=== PATIENT | female | born 1990 | race Caucasian/White ===

== ENCOUNTER 2021-01-10 09:19 | Observation (INO) | payer MEDICAID ==
[~2021-01-10] VITALS: Ht 172.7 cm; Wt 108.9 kg
== END 2021-01-10 14:10 | disposition home or self-care (01) ==
LOC: 8 EST LDRP 09:19
PROVIDERS: ADMIT Obstetrics & Gynecology; ATTEND Obstetrics & Gynecology
DX: O62.9 Abnormality of forces of labor, unspecified (principal); Z3A.39 39 weeks gestation of pregnancy
CPT/HCPCS: 59025; 76805; 76818; G0378; 99281

== ENCOUNTER 2021-01-12 09:11 | Inpatient (IN) | payer MEDICAID ==
[~2021-01-12] VITALS: Ht 53.3 cm; Wt 3.8 kg
[2021-01-12] MEDS ORDERED: PREN1CAP29 PO (09:28)
[2021-01-12] MEDS ORDERED: DEXT 5%/LACTATED RINGERS 1,000 ML IV PRN (10:15)
[2021-01-12] MEDS ORDERED: NALOXONE HCL 0.4 MG/ML 1ML VIAL IM PRN (10:15)
[2021-01-12] MEDS ORDERED: MISOPROSTOL 200MCG TABLET VG SCH (10:15)
[2021-01-12] MEDS ORDERED: METHYLERGONOVINE MALEATE 0.2 MG/ML IM PRN (10:15)
[2021-01-12] MEDS ORDERED: CARBOPROST TROMETHAMINE 250 MCG/ML AMPUL IM PRN (10:15)
[2021-01-12] MEDS ORDERED: BUTORPHANOL TARTRATE 2 MG/ML VIAL IV PRN (10:15)
[2021-01-12] MEDS ORDERED: LIDOCAINE HCL 1% 20ML VIAL (Pyxis) INJ INFIL SCH (10:15)
[2021-01-12 10:38] LABS: BASOPHILS % 0.3 % (0.0-2.0); EOSINOPHILS % 0.8 % (0.0-5.0); HEMATOCRIT. 34.6 % (36.0-48.0); HEMOGLOBIN. 12.1 g/dL (12.0-16.0); LYMPHOCYTES % 23.7 % (20.0-50.0); MEAN CORPUSCULAR HEMOGLOBIN 32.6 pg (28.0-32.0); MEAN CORPUSCULAR VOLUME 93.3 fL (81.0-99.0); MEAN PLATELET VOLUME 9.2 fl (7.4-10.4); MONOCYTES % 5.3 % (2.0-8.0); NEUTROPHILS % 69.9 % (40.0-76.0); PLATELET 226 x1000/uL (130-400); RED BLOOD CELL COUNT 3.71 mill/uL (4.2-5.4); RED CELL DISTRIBUTION WIDTH 13.7 % (11.6-14.6)
[2021-01-12 10:46] LABS: CLARITY URINE CLOUDY (CLEAR); COLOR URINE YELLOW (YELLOW); KETONES URINE NEGATIVE (NEGATIVE); LEUKOCYTE ESTERASE URINE NEGATIVE (NEGATIVE); NITRITE URINE NEGATIVE (NEGATIVE); OCCULT BLOOD URINE NEGATIVE (NEGATIVE); PROTEIN URINE NEGATIVE (NEGATIVE)
[2021-01-12 10:50] LABS: PARTIAL THROMBOPLASTIN TIME 31.4 sec (23.4-31.0); PROTHROMBIN TIME 10.9 sec (9.6-11.0)
[2021-01-12] MEDS ORDERED: AMPICILLIN 2GM in NS 100ML 100 ML IV NR (11:00)
[2021-01-12] MEDS: LACTATED RINGERS 1,000 ML IV PRN ×5 (11:16→18:33)
[2021-01-12] MEDS: DEXT 5%/LR + PITOCIN 20UNITS/L 1,000 ML IV PRN ×2 (11:16→23:50)
[2021-01-12 11:31] LABS: HEPATITIS B SURFACE ANTIGEN NEGATIVE
[2021-01-12 12:07] LABS: *AMPHETAMINES SCREEN URINE NEGATIVE (NEGATIVE); *BARBITURATES SCREEN URINE NEGATIVE (NEGATIVE); *BENZODIAZEPINES SCREEN URINE NEGATIVE (NEGATIVE)
[2021-01-12 12:08] LABS: *COCAINE SCREEN URINE NEGATIVE (NEGATIVE); CANNABINOID URINE SCREEN NEGATIVE (NEGATIVE); METHADONE URINE SCREEN NEGATIVE (NEGATIVE); PHENCYCLIDINE URINE SCREEN NEGATIVE (NEGATIVE)
[2021-01-12 12:10] LABS: OPIATES URINE SCREEN NEGATIVE (NEGATIVE)
[2021-01-12] MEDS ORDERED: AMPICILLIN 1,000 MG in SODIUM CHLORIDE 0.9% 50 ML IV SCH (17:00)
[2021-01-12] MEDS ORDERED: ROPIVACAINE HCL/PF EPIDURAL 200 ML EPI SCH (18:00)
[2021-01-12] MEDS ORDERED: ONDANSETRON HCL 4MG/2ML INJ IV PRN (18:00)
[2021-01-12] MEDS ORDERED: DIPHENHYDRAMINE 50MG/ML VIAL IV PRN (18:00)
[2021-01-12] MEDS ORDERED: DEXT 5%/LR + PITOCIN 20UNITS/L 1,000 ML IV ONE (23:41)
[2021-01-12] MEDS ORDERED: IBUPROFEN 400MG TABLET PO PRN (23:45)
[2021-01-12] MEDS ORDERED: BENZOCAINE/LANOLIN/ALOE VERA SPRAY TOP PRN (23:45)
[2021-01-12] MEDS ORDERED: LANOLIN OINT 7GM TUBE TOP PRN (23:45)
[2021-01-12] MEDS ORDERED: ACETAMINOPHEN WITH CODEINE 300/30MG TABLET PO PRN (23:45)
[2021-01-12] MEDS ORDERED: DIPHENHYDRAMINE 25MG CAPSULE PO PRN (23:45)
[2021-01-12] MEDS ORDERED: DEXT 5%/LR + PITOCIN 20UNITS/L 1,000 ML IV SCH (23:45)
[2021-01-12] MEDS ORDERED: HEMORRHOIDAL SUPP PR PRN (23:45)
[2021-01-12] MEDS ORDERED: RHO(D) IMMUNE GLOBULIN 300 MCG/SYR IM PRN (23:45)
[2021-01-12] MEDS ORDERED: BISACODYL 10MG SUPP PR PRN (23:45)
[2021-01-12] MEDS ORDERED: GLYCERIN/WITCH HAZEL LEAF MEDICATED PAD TOP PRN (23:45)
[2021-01-13 01:30] VITALS: BP 98/74
[2021-01-13 02:00] VITALS: BP 115/70
[2021-01-13 05:00] VITALS: BP 102/67
[2021-01-13 07:43] LABS: BASOPHILS % 0.2 % (0.0-2.0); EOSINOPHILS % 0.6 % (0.0-5.0); HEMATOCRIT. 36.3 % (36.0-48.0); HEMOGLOBIN. 12.4 g/dL (12.0-16.0); LYMPHOCYTES % 16.9 % (20.0-50.0); MEAN CORPUSCULAR HEMOGLOBIN 32.2 pg (28.0-32.0); MEAN CORPUSCULAR VOLUME 94.6 fL (81.0-99.0); MEAN PLATELET VOLUME 9.1 fl (7.4-10.4); MONOCYTES % 7.5 % (2.0-8.0); NEUTROPHILS % 74.8 % (40.0-76.0); PLATELET 218 x1000/uL (130-400); RED BLOOD CELL COUNT 3.84 mill/uL (4.2-5.4); RED CELL DISTRIBUTION WIDTH 13.4 % (11.6-14.6)
[2021-01-13 08:00] VITALS: BP 116/71
[2021-01-13] MEDS: PRENATAL VIT/FE FUMARATE/FA TABLET PO SCH (08:17)
[2021-01-13] MEDS: IBUPROFEN 800MG TABLET PO PRN ×2 (08:17→20:26)
[2021-01-13] MEDS: FERROUS SULFATE 325MG TABLET PO SCH ×2 (08:17→20:27)
[2021-01-13] MEDS: SIMETHICONE 80MG TABLET CHEW PO SCH ×2 (08:18→20:27)
[2021-01-13] MEDS ORDERED: METHYLERGONOVINE MALEATE 0.2MG TABLET PO SCH (09:00)
[2021-01-13 17:32] VITALS: BP 108/68
[2021-01-13 19:15] VITALS: BP 117/76
[2021-01-13] MEDS: MAGNESIUM/ALUMINUM HYDROXIDE/SIMETHICONE 30ML UDC PO SCH (20:27)
[2021-01-13] MEDS ORDERED: DOCUSATE SODIUM 100MG CAPSULE PO SCH (21:00)
[2021-01-13] MEDS ORDERED: ACETAMINOPHEN WITH CODEINE 300/30MG TABLET PO PRN (23:45)
[2021-01-14 04:00] VITALS: BP 124/81
[2021-01-14] MEDS: MAGNESIUM/ALUMINUM HYDROXIDE/SIMETHICONE 30ML UDC PO SCH ×2 (07:30→12:27)
[2021-01-14] MEDS: FERROUS SULFATE 325MG TABLET PO SCH ×2 (07:30→12:27)
[2021-01-14] MEDS: SIMETHICONE 80MG TABLET CHEW PO SCH ×2 (08:00→12:27)
[2021-01-14] MEDS: PRENATAL VIT/FE FUMARATE/FA TABLET PO SCH (08:39)
[2021-01-14 08:46] VITALS: BP 132/85
== END 2021-01-14 14:40 | disposition home or self-care (01) | DRG 560 ==
LOC: OBSVTOIN 09:11 → 8 EST LDRP 09:11 → UNDODISOB 10:15 → 8EST 01-13 01:15
PROVIDERS: ADMIT Obstetrics & Gynecology; ATTEND Obstetrics & Gynecology
PROC: 10E0XZZ Delivery of Products of Conception, External Approach (ICD-10-PCS; principal; 2021-01-12)
PROC: 3E0R3BZ Introduction of Anesthetic Agent into Spinal Canal, Percutaneous Approach (ICD-10-PCS; 2021-01-12)
PROC: 00HU33Z Insertion of Infusion Device into Spinal Canal, Percutaneous Approach (ICD-10-PCS; 2021-01-12)
DX: O80 Encounter for full-term uncomplicated delivery (principal); Z3A.39 39 weeks gestation of pregnancy; Z37.0 Single live birth
CPT/HCPCS: 36415; 80305; 81003; 85025; 86592; 86703; 86762; 86850; 86900; 87340; G0378; J0290; J2590; J2795; A4315

== ENCOUNTER 2023-12-05 23:29 | Emergency (ER) | payer MEDICAID, OTHER ==
[~2023-12-05] VITALS: Ht 167.6 cm; Wt 73.0 kg
[2023-12-05 23:43] VITALS: BP 134/96; TEMP 98.5; O2SAT 98
[2023-12-06] MEDS ORDERED: KETOROLAC 30MG/ML VIAL IM STA (01:37)
[2023-12-06 01:48] LABS: BASOPHILS % 0.8 % (0.0-2.0); EOSINOPHILS % 1.8 % (0.0-5.0); HEMATOCRIT. 41.9 % (36.0-48.0); HEMOGLOBIN. 14.3 g/dL (12.0-16.0); MEAN CORPUSCULAR HEMOGLOBIN 32.9 pg (28.0-32.0); MEAN CORPUSCULAR HGB CONC 34.1 g/dL (31.0-37.0); MEAN CORPUSCULAR VOLUME 96.4 fL (81.0-99.0); MEAN PLATELET VOLUME 7.6 fl (7.4-10.4); NEUTROPHILS % 38.4 % (40.0-76.0); PLATELET 243 x1000/uL (130-400); RED BLOOD CELL COUNT 4.35 mill/uL (4.2-5.4); RED CELL DISTRIBUTION WIDTH 12.8 % (11.6-14.6); WHITE BLOOD COUNT 7.9 x1000/uL (4.5-11.0)
[2023-12-06 02:02] LABS: ALANINE AMINOTRANSFERASE 37 IU/L (10-49); ALBUMIN 4.5 g/dL (3.2-4.8); ASPARTATE AMINOTRANSFERASE 53 IU/L (<34); BILIRUBIN TOTAL 0.5 mg/dL (0.1-1.0); CALCIUM 9.3 mg/dL (8.7-10.4); CARBON DIOXIDE 28 mEq/L (21-32); CHLORIDE 107 mEq/L (98-107); CREATININE 0.6 mg/dL (0.6-1.0); GLUCOSE 89 mg/dL (70-105); POTASSIUM 4.7 mEq/L (3.5-5.1); PROTEIN TOTAL 8.5 g/dL (6.0-8.3); SODIUM 143 mEq/L (136-145)
[2023-12-06 02:04] LABS: UREA NITROGEN BLOOD < 5 mg/dL (9-23)
[2023-12-06 02:36] LABS: CLARITY URINE CLOUDY (CLEAR); COLOR URINE DARK YELLOW (YELLOW); GLUCOSE URINE NEGATIVE (NEGATIVE); KETONES URINE NEGATIVE (NEGATIVE); LEUKOCYTE ESTERASE URINE 1+ (NEGATIVE); NITRITE URINE POSITIVE (NEGATIVE); OCCULT BLOOD URINE NEGATIVE (NEGATIVE); PROTEIN URINE TRACE (NEGATIVE); SPECIFIC GRAVITY URINE 1.021 (1.005-1.030)
[2023-12-06 02:56] LABS: BACTERIA URINE 2+; SQUAMOUS EPITHELIAL CELL URINE 2+ /lpf (RARE/1+); WBC URINE 50-100 /hpf (0-2)
[2023-12-06] MEDS ORDERED: CEPHALEXIN 250MG CAPSULE PO ONE (03:00)
[2023-12-06] MEDS ORDERED: IBUP-2029 MT (03:04)
[2023-12-06] MEDS ORDERED: CEPH500C2 MT (03:04)
[2023-12-06] MEDS ORDERED: HYDROCODONE/ACETAMINOPHEN 5/325MG TABLET PO ONE (03:15)
[2023-12-06] MEDS ORDERED: CEFTRIAXONE SODIUM 1G VIAL IM ONE (03:15)
[2023-12-06 03:31] VITALS: PULSE 100; RESP 16
== END 2023-12-06 03:33 | disposition home or self-care (01) ==
LOC: ER 23:55
DX: K80.20 Calculus of gallbladder without cholecystitis without obstruction (principal); N39.0 Urinary tract infection, site not specified
CPT/HCPCS: 99285; 80053; 81003; 81025; 83690; 85025; 87086; 87186; 36415; 76705; 96372; J0696; J1885; Z7610 ×2

== ENCOUNTER 2023-12-19 12:51 | Emergency (ER) | payer OTHER ==
[~2023-12-19] VITALS: Ht 160 cm; Wt 70.0 kg
[~2023-12-19 12:51] MED LIST: CEPH500C2 MT; IBUP-2029 MT
[2023-12-19 12:52] VITALS: O2SAT 99
[2023-12-19 14:27] LABS: EOSINOPHILS % 2.2 % (0.0-5.0); HEMATOCRIT. 40.5 % (36.0-48.0); HEMOGLOBIN. 13.8 g/dL (12.0-16.0); LYMPHOCYTES % 29.1 % (20.0-50.0); MEAN CORPUSCULAR HEMOGLOBIN 32.9 pg (28.0-32.0); MEAN CORPUSCULAR HGB CONC 34.1 g/dL (31.0-37.0); MEAN CORPUSCULAR VOLUME 96.4 fL (81.0-99.0); MEAN PLATELET VOLUME 8.2 fl (7.4-10.4); MONOCYTES % 10.8 % (2.0-8.0); NEUTROPHILS % 56.9 % (40.0-76.0); PLATELET 229 x1000/uL (130-400); RED BLOOD CELL COUNT 4.19 mill/uL (4.2-5.4); RED CELL DISTRIBUTION WIDTH 13.6 % (11.6-14.6); WHITE BLOOD COUNT 6.8 x1000/uL (4.5-11.0)
[2023-12-19 14:44] LABS: ALANINE AMINOTRANSFERASE 95 IU/L (10-49); ALBUMIN 4.4 g/dL (3.2-4.8); ASPARTATE AMINOTRANSFERASE 91 IU/L (<34); BILIRUBIN TOTAL 0.4 mg/dL (0.1-1.0); CALCIUM 9.3 mg/dL (8.7-10.4); CARBON DIOXIDE 30 mEq/L (21-32); CHLORIDE 105 mEq/L (98-107); CREATININE 0.6 mg/dL (0.6-1.0); GLUCOSE 95 mg/dL (70-105); PROTEIN TOTAL 7.7 g/dL (6.0-8.3); SODIUM 139 mEq/L (136-145); UREA NITROGEN BLOOD 11 mg/dL (9-23)
[2023-12-19 16:22] LABS: CLARITY URINE CLEAR (CLEAR); COLOR URINE YELLOW (YELLOW); GLUCOSE URINE NEGATIVE (NEGATIVE); KETONES URINE NEGATIVE (NEGATIVE); LEUKOCYTE ESTERASE URINE 2+ (NEGATIVE); NITRITE URINE NEGATIVE (NEGATIVE); OCCULT BLOOD URINE NEGATIVE (NEGATIVE); PROTEIN URINE NEGATIVE (NEGATIVE); SPECIFIC GRAVITY URINE 1.016 (1.005-1.030); UROBILINOGEN URINE 0.2 E.U./dL (0.2-1.0)
[2023-12-19 16:44] LABS: BACTERIA URINE 1+; RBC URINE 0-2 /hpf (0-2); SQUAMOUS EPITHELIAL CELL URINE FEW /lpf (RARE/1+)
[2023-12-19 16:45] LABS: TRICHOMONAS URINE RARE; YEAST URINE NONE SEEN
[2023-12-19 16:59] LABS: HCG SCREEN NEGATIVE
[2023-12-19] MEDS: ONDANSETRON 4MG ODT PO ONE (17:43)
[2023-12-19] MEDS: KETOROLAC 60MG/2ML VIAL IM ONE (17:43)
[2023-12-20 01:36] VITALS: BP 120/73; PULSE 71; RESP 16; TEMP 97.7
== END 2023-12-20 02:04 | disposition short-term general hospital (02) ==
LOC: ER 12:51
DX: K80.20 Calculus of gallbladder without cholecystitis without obstruction (principal); Z20.822 Contact with and (suspected) exposure to COVID-19
CPT/HCPCS: 80053; 81003; 81025; 84703; 83690; 85025; 36415; 76705; 96372; 99285; 87426; Q0162; J1885; Z7610 ×2

== ENCOUNTER 2025-01-04 20:39 | Emergency (ER) | payer MEDICAID, OTHER ==
[~2025-01-04] VITALS: Ht 167.6 cm; Wt 68.0 kg
[2025-01-04 20:44] VITALS: TEMP 36.8; O2SAT 96
[2025-01-04] MEDS ORDERED: CHLO25CA10 MT (21:24)
[2025-01-04] MEDS ORDERED: THIA100T72 MT (21:24)
[2025-01-04] MEDS ORDERED: FOLI-43 MT (21:24)
[2025-01-04 21:40] VITALS: BP 150/86; PULSE 96; RESP 18; O2SAT 98
[2025-01-04 21:52] LABS: HCG SCREEN NEGATIVE
== END 2025-01-04 21:41 | disposition home or self-care (01) ==
LOC: ER 20:39
DX: M54.2 Cervicalgia (principal); M62.838 Other muscle spasm; F10.939 Alcohol use, unspecified with withdrawal, unspecified; F41.9 Anxiety disorder, unspecified; Y90.9 Presence of alcohol in blood, level not specified
CPT/HCPCS: 84703; 99283